=== PATIENT | female | born 1965 | race Caucasian/White ===

== ENCOUNTER 2018-02-19 23:46 | Emergency (ER) | payer MEDICAID ==
[2018-02-20 00:06] VITALS: Ht 162.6 cm
[2018-02-20 02:18] VITALS: BP 144/76
== END 2018-02-20 02:18 | disposition home or self-care (01) ==
LOC: ED 23:46
DX: M54.2 Cervicalgia (principal); R51 Headache
CPT/HCPCS: J1885